=== PATIENT | female | born 1980 | race Caucasian/White ===

== ENCOUNTER 2018-03-21 18:38 | Emergency (ER) | payer MEDICAID, OTHER ==
[2018-03-21 19:10] LABS: BASOPHIL % 0.2 % (0.0-0.4); Basophil (Absolute #) 0.02 (0-0.4); Eosinophil % 3.2 % (0.00-5.0); Eosinophil (Absolute #) 0.28 (0-0.5); Granulocyte Absolute (ANC) 4.56 (1.4-6.9); Granulocytes % 52.3 % (36.0-66.0); Hematocrit 41.1 % (35-47); Hemoglobin 13.4 gm/dl (12.0-16.0); Lymphocyte (Absolute #) 2.93 (1.0-4.6); Lymphocytes % 33.6 % (24.0-44.0); Mean Cell Volume 102.2 fl (78-100); Mean Corpuscular Hemoglobin 33.3 pg (26-32); Mean Corpuscular Hgb Concent. 32.6 g/dl (32-36); Mean Platelet Volume 12.2 fl (6-9.5); Monocyte (Absolute #) 0.93 (0.0-1.3); Monocytes % 10.7 % (0.0-12.0); Platelet Count 149 K/mm3 (150-450); Red Blood Count 4.02 M/mm3 (4.1-5.4); Red Cell Distribution Width 13.1 % (11.5-14.0); White Blood Count 8.7 K/mm3 (4.0-10.5)
[2018-03-21 19:21] LABS: Appearance CLOUDY (CLEAR); Bacteria FEW /HPF (NEGATIVE); Bilirubin NEGATIVE (NEGATIVE); Blood NEGATIVE Ery/ul (0-5); Epithelial Cells MODERATE /HPF (FEW); Glucose NEGATIVE (NEGATIVE); Ketones NEGATIVE (NEGATIVE); Leukocyte Esterase TRACE (NEGATIVE); Mucus SLIGHT /HPF (NEGATIVE); Nitrite NEGATIVE (NEGATIVE); Protein,Urine Dip NEGATIVE (Negative); RBC 0-2 /HPF (0-2); Urobilinogen NORMAL mg/dL (0-1); WBC 0-2 /HPF (0-5)
[2018-03-21 19:22] LABS: Amourphous Crystal MANY /HPF (NEGATIVE)
--- NOTE | 2018-03-21 19:23 | ERPHSYRPT ---
- History of Present Illness Time Seen by Provider: 03/21/18 19:20 Source: patient, family Exam Limitations: no limitations Patient Subjective Stated Complaint: pt reports "pooping mud" for the last 2-3 days, reports today she woke with severe swelling to both lower extremities. states she feels full with a lot pressure to the upper, mid abdominal region. states she feels like someone has pumped her full of air. pt reports shortness of breath. Triage Nursing Assessment: pt is aox3, pupils perrl, pt is afebrile, resps easy and non labored, lung sound are clear anterior, posterior lung sounds are diminished, radial pulses are strong and equal, cap refill < 3 seconds, abd is distended, bowel sounds are present and normoactive x4, 1+ pitting edema noted to the right lower extremity with moderate non pitting edema noted to the left lower extremity, skin is intact, pedal pulses strong and equal bilat. pt denies chest pain. Physician History: pt reports "pooping mud" for the last 2-3 days, reports today she woke with severe swelling to both lower extremities. states she feels full with a lot pressure to the upper, mid abdominal region. states she feels like someone has pumped her full of air. pt reports shortness of breath. c/o swelling over legs, substernal heaviness, c/o epigastric discomfort. Timing/Duration: day(s) Severity of Dyspnea-Max: mild Severity of Dyspnea-Current: mild Possible Cause: frequent episodes Modifying Factors: Improves With: nothing Associated Symptoms: anxiety, chest pain/discomfort, edema, weakness, ankle swelling, leg swelling Allergies/Adverse Reactions: Penicillins Allergy (Mild, Unverified 08/30/12 08:01) Iodinated Contrast- Oral and IV Dye Allergy (Verified 03/21/18 19:00) Hx Tetanus, Diphtheria Vaccination/Date Given: Yes Hx Influenza Vaccination/Date Given: No Hx Pneumococcal Vaccination/Date Given: No Immunizations Up to Date: Yes - Review of Systems Constitutional: No Fever, No Chills Eyes: No Symptoms Ears, Nose, & Throat: No Symptoms Respiratory: Dyspnea, No Cough Cardiac: Chest Pain, Edema, No Syncope Abdominal/Gastrointestinal: No Abdominal Pain, No Nausea, No Vomiting, No Diarrhea Genitourinary Symptoms: No Dysuria Musculoskeletal: No Back Pain, No Neck Pain Skin: No Rash Neurological: No Dizziness, No Focal Weakness, No Sensory Changes Psychological: No Symptoms Endocrine: No Symptoms All Other Systems: Reviewed and Negative - Past Medical History Pertinent Past Medical History: Yes GI Medical History: Pancreatitis History: Other Other Medical History: LEFT KIDNEY REMOVED , STENT IN BLADDER. nexplanon - control implant placed 12/04 - Past Surgical History Past Surgical History: Yes Genitourinary: Kidney Surgery Female Surgical History: Other Other Surgical History: nephrectomy 1990. vaginal mesh to support bladder 2003 - Social History Smoking Status: Current every day smoker Exposure to second hand smoke: Yes Drug Use: none Patient Lives Alone: No - Female History Hx Last Menstrual Period: 03/17/18 Hx Now: No (pending) - Nursing Vital Signs Nursing Vital Signs: Initial Vital Signs Temperature 97.7 F 03/21/18 18:39 Pulse Rate 85 03/21/18 18:39 Respiratory Rate 24 03/21/18 18:39 Blood Pressure 156/103 03/21/18 18:39 O2 Sat by Pulse Oximetry 98 03/21/18 18:39 Pain Scale Pain Intensity 6 - Physical Exam General Appearance: no apparent distress, alert Eye Exam: PERRL/EOMI Neck Exam: normal inspection, supple Respiratory Exam: normal breath sounds Cardiovascular/Chest Exam: normal heart sounds, regular rate/rhythm, edema Abdominal/Gastrointestinal Exam: soft, No tenderness, No distention, No mass Extremity Exam: non-tender, normal range of motion, normal inspection, no calf tenderness, no pedal edema Neurologic Exam: alert, oriented x 3, cooperative, 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 tested, sensation nml, No motor deficits Skin Exam: normal color, warm, No dry SpO2 Interpretation: normal SpO2: 99 Oxygen Delivery: Room Air - Course Nursing assessment & vital signs reviewed: Yes EKG Interpreted by Me: Sinus Rhythm Ordered Tests: Active Orders 24 hr Category Date Time Status Clean Catch Urine Specimen STAT Care 03/21/18 18:57 Active EKG-ER Only STAT Care 03/21/18 18:54 Active IV Insertion STAT Care 03/21/18 18:54 Active CHEST 1 VIEW (PORTABLE) Stat Exams 03/21/18 18:57 Taken CHEST WITH CONTRAST [CT] Stat Exams 03/21/18 19:37 Taken AMYLASE Stat Lab 03/21/18 19:00 Completed CBC W DIFF Stat Lab 03/21/18 19:05 Completed CMP Stat Lab 03/21/18 19:05 Completed D-DIMER QUANTITATION Stat Lab 03/21/18 19:05 Completed HCG,QUALITATIVE URINE Stat Lab 03/21/18 19:05 Completed LIPASE Stat Lab 03/21/18 19:00 Completed TROPONIN Q3H Lab 03/21/18 19:00 Completed TROPONIN Q3H Lab 03/21/18 22:00 Ordered UA W/ MICROSCOPIC Stat Lab 03/21/18 19:05 Completed Medication Summary Generic Name Dose Route Start Last Admin Trade Name Freq PRN Reason Stop Dose Admin Furosemide 20 mg 03/22/18 19:25 03/21/18 19:36 Lasix 20 Mg/2 Ml IV 03/22/18 19:26 20 mg STAT ONE Administration Discontinued Medications Generic Name Dose Route Start Last Admin Trade Name Freq PRN Reason Stop Dose Admin Diphenhydramine HCl 25 mg 03/21/18 19:42 03/21/18 19:54 Benadryl 50 Mg/Ml IV 03/21/18 19:43 25 mg STAT ONE Administration Diphenhydramine HCl Confirm 03/21/18 19:49 Benadryl 50 Mg/Ml Administered 03/21/18 19:50 Dose 50 mg .ROUTE .STK-MED ONE Famotidine 20 mg 03/21/18 19:27 03/21/18 19:35 Pepcid 20 Mg Vial IV 03/21/18 19:28 20 mg STAT ONE Administration Famotidine Confirm 03/21/18 19:32 Pepcid 20 Mg Vial Administered 03/21/18 19:33 Dose 20 mg IV .STK-MED ONE Furosemide Confirm 03/21/18 19:32 Lasix 40 Mg/4 Ml Administered 03/21/18 19:33 Dose 40 mg .ROUTE .STK-MED ONE Hydrocortisone Sodium Succinate 250 mg 03/21/18 19:43 03/21/18 19:53 Solu-Cortef 250mg IV 03/21/18 19:44 250 mg STAT ONE Administration Hydrocortisone Sodium Succinate Confirm 03/21/18 19:49 Solu-Cortef 250mg Administered 03/21/18 19:50 Dose 250 mg .ROUTE .STK-MED ONE Lab/Rad Data: Laboratory Result Diagrams 03/21/18 19:05 03/21/18 19:05 Laboratory Results 03/21/18 03/21/18 03/21/18 Range/Units 19: 19: 19:05 WBC (4.0-10.5) K/mm3 RBC (4.1-5.4) M/mm3 Hgb (12.0-16.0) gm/dl Hct (35-47) % MCV (78-100) fl MCH (26-32) pg MCHC (32-36) g/dl RDW (11.5-14.0) % Plt Count (150-450) K/mm3 MPV (6-9.5) fl Gran % (36.0-66.0) % Eos # (Auto) (0-0.5) Absolute Lymphs (auto) (1.0-4.6) Absolute Monos (auto) (0.0-1.3) Lymphocytes % (24.0-44.0) % Monocytes % (0.0-12.0) % Eosinophils % (0.00-5.0) % Basophils % (0.0-0.4) % Absolute Granulocytes (1.4-6.9) Basophils # (0-0.4) D-Dimer 956.92 H* (215-500) ng/mL Sodium (137-145) mmol/L Potassium (3.5-5.1) mmol/L Chloride (98-107) mmol/L Carbon Dioxide (22-30) mmol/L Anion Gap (5-15) MEQ/L BUN (7-17) mg/dL Creatinine (0.52-1.04) mg/dL Estimated GFR ML/MIN Glucose (74-106) mg/dL Calcium (8.4-10.2) mg/dL Total Bilirubin (0.2-1.3) mg/dL AST (14-36) U/L ALT (0-35) U/L Alkaline Phosphatase (38-126) U/L Troponin I (0.000-0.034) ng/mL Serum Total Protein (6.3-8.2) g/dL Albumin (3.5-5.0) g/dL Amylase (30-110) U/L Lipase (23-300) U/L Ur Collection Type VOID Urine Color YELLOW (YELLOW) Urine Appearance CLOUDY (CLEAR) Urine pH 6.0 (5-6) Ur Specific [place] 1.020 (1.005-1.025) Urine Protein NEGATIVE (Negative) Urine Ketones NEGATIVE (NEGATIVE) Urine Blood NEGATIVE (0-5) Yfn/ul Urine Nitrite NEGATIVE (NEGATIVE) Urine Bilirubin NEGATIVE (NEGATIVE) Urine Urobilinogen NORMAL (0-1) mg/dL Ur Leukocyte Esterase TRACE (NEGATIVE) Urine Microscopic RBC 0-2 (0-2) /HPF Urine Microscopic WBC 0-2 (0-5) /HPF Ur Epithelial Cells MODERATE (FEW) /HPF Amorphous Crystals MANY (NEGATIVE) /HPF Urine Bacteria FEW (NEGATIVE) /HPF Urine Mucus SLIGHT (NEGATIVE) /HPF Urine Culture Reflexed NO (NO) Urine Glucose NEGATIVE (NEGATIVE) mg/dL Urine HCG, Qual NEGATIVE (Negative) Specimen Received 03/21/18 19103/21/18 03/21/18 03/21/18 Range/Units 19:05 19:05 19:00 WBC 8.7 (4.0-10.5) K/mm3 RBC 4.02 L (4.1-5.4) M/mm3 Hgb 13.4 (12.0-16.0) gm/dl Hct 41.1 (35-47) % MCV 102.2 H (78-100) fl MCH 33.3 H (26-32) pg MCHC 32.6 (32-36) g/dl RDW 13.1 (11.5-14.0) % Plt Count 149 L (150-450) K/mm3 MPV 12.2 H (6-9.5) fl Gran % 52.3 (36.0-66.0) % Eos # (Auto) 0.28 (0-0.5) Absolute Lymphs (auto) 2.93 (1.0-4.6) Absolute Monos (auto) 0.93 (0.0-1.3) Lymphocytes % 33.6 (24.0-44.0) % Monocytes % 10.7 (0.0-12.0) % Eosinophils % 3.2 (0.00-5.0) % Basophils % 0.2 (0.0-0.4) % Absolute Granulocytes 4.56 (1.4-6.9) Basophils # 0.02 (0-0.4) D-Dimer (215-500) ng/mL Sodium 140 (137-145) mmol/L Potassium 4.3 (3.5-5.1) mmol/L Chloride 107 (98-107) mmol/L Carbon Dioxide 25 (22-30) mmol/L Anion Gap 11.9 (5-15) MEQ/L BUN 16 (7-17) mg/dL Creatinine 0.82 (0.52-1.04) mg/dL Estimated GFR > 60.0 ML/MIN Glucose 99 (74-106) mg/dL Calcium 9.6 (8.4-10.2) mg/dL Total Bilirubin 0.30 (0.2-1.3) mg/dL AST 46 H (14-36) U/L ALT 57 H (0-35) U/L Alkaline Phosphatase 74 (38-126) U/L Troponin I (0.000-0.034) ng/mL Serum Total Protein 6.1 L (6.3-8.2) g/dL Albumin 3.5 (3.5-5.0) g/dL Amylase 74 (30-110) U/L Lipase 162 (23-300) U/L Ur Collection Type Urine Color (YELLOW) Urine Appearance (CLEAR) Urine pH (5-6) Ur Specific [place] (1.005-1.025) Urine Protein (Negative) Urine Ketones (NEGATIVE) Urine Blood (0-5) Yfn/ul Urine Nitrite (NEGATIVE) Urine Bilirubin (NEGATIVE) Urine Urobilinogen (0-1) mg/dL Ur Leukocyte Esterase (NEGATIVE) Urine Microscopic RBC (0-2) /HPF Urine Microscopic WBC (0-5) /HPF Ur Epithelial Cells (FEW) /HPF Amorphous Crystals (NEGATIVE) /HPF Urine Bacteria (NEGATIVE) /HPF Urine Mucus (NEGATIVE) /HPF Urine Culture Reflexed (NO) Urine Glucose (NEGATIVE) mg/dL Urine HCG, Qual (Negative) Specimen Received 03/21/18 Range/Units 19:00 WBC (4.0-10.5) K/mm3 RBC (4.1-5.4) M/mm3 Hgb (12.0-16.0) gm/dl Hct (35-47) % MCV (78-100) fl MCH (26-32) pg MCHC (32-36) g/dl RDW (11.5-14.0) % Plt Count (150-450) K/mm3 MPV (6-9.5) fl Gran % (36.0-66.0) % Eos # (Auto) (0-0.5) Absolute Lymphs (auto) (1.0-4.6) Absolute Monos (auto) (0.0-1.3) Lymphocytes % (24.0-44.0) % Monocytes % (0.0-12.0) % Eosinophils % (0.00-5.0) % Basophils % (0.0-0.4) % Absolute Granulocytes (1.4-6.9) Basophils # (0-0.4) D-Dimer (215-500) ng/mL Sodium (137-145) mmol/L Potassium (3.5-5.1) mmol/L Chloride (98-107) mmol/L Carbon Dioxide (22-30) mmol/L Anion Gap (5-15) MEQ/L BUN (7-17) mg/dL Creatinine (0.52-1.04) mg/dL Estimated GFR ML/MIN Glucose (74-106) mg/dL Calcium (8.4-10.2) mg/dL Total Bilirubin (0.2-1.3) mg/dL AST (14-36) U/L ALT (0-35) U/L Alkaline Phosphatase (38-126) U/L Troponin I < 0.012 (0.000-0.034) ng/mL Serum Total Protein (6.3-8.2) g/dL Albumin (3.5-5.0) g/dL Amylase (30-110) U/L Lipase (23-300) U/L Ur Collection Type Urine Color (YELLOW) Urine Appearance (CLEAR) Urine pH (5-6) Ur Specific [place] (1.005-1.025) Urine Protein (Negative) Urine Ketones (NEGATIVE) Urine Blood (0-5) Yfn/ul Urine Nitrite (NEGATIVE) Urine Bilirubin (NEGATIVE) Urine Urobilinogen (0-1) mg/dL Ur Leukocyte Esterase (NEGATIVE) Urine Microscopic RBC (0-2) /HPF Urine Microscopic WBC (0-5) /HPF Ur Epithelial Cells (FEW) /HPF Amorphous Crystals (NEGATIVE) /HPF Urine Bacteria (NEGATIVE) /HPF Urine Mucus (NEGATIVE) /HPF Urine Culture Reflexed (NO) Urine Glucose (NEGATIVE) mg/dL Urine HCG, Qual (Negative) Specimen Received - Progress Progress: improved Air Movement: good Blood Culture(s) Obtained: No Antibiotics given: No Counseled pt/family regarding: lab results, diagnosis, need for follow-up, rad results - Departure Time of Disposition: 19:34 Departure Disposition: Home Clinical Impression: Anasarca associated with disorder of kidney, Gastritis and duodenitis Condition: Stable Critical Care Time: No Referrals: ORALIA CAMPBELL [ACTIVE STAFF] - Additional Instructions: ABDOMINAL PAIN 1. There are several different causes for abdominal pain, some of which may not be able to be identified on initial examination. 2. The important thing to remember is that bodily functions can change in a short period of time. If you notice any of the following symptoms, return to the emergency department or consult your doctor immediately: A. Worsening pain or no improvement in the next 12 hours. B. Increasing, severe abdominal pain C. Blood in stool D. Black stools E. Persistent vomiting F. Fever or chills or other symptoms SURYA KIRKLAND was seen on 03/21/18 n the Emergency Room. At that time you were treated for an emergent condition, during your visit Laboratory, Radiology and/or other procedures may have been ordered. It is very important that you follow-up with your Primary Care Physician within the next 24-48 hours to review your Emergency Room visit and the final results of testing that was ordered. Some test results such as Urine Cultures, Blood Cultures, and other cultures if ordered will not be finalized for 24-48 hours. If you do not have a Primary Care Provider please call the medical records department at [phone] to obtain a copy of your results or you may sign into our patient portal to obtain these results by visiting us @ [email or web address] and completing the following steps: 1. Click on the Patient Portal link 2. Click the Patient Self Enrollment Link to complete the enrollment form and entering your 3. Once the enrollment form is completed you will receive an email with a temporary ID and password at the email address you provided. 4. Next choose a user name and password. Your user name must be at least 4 characters long and your password must be at least 4 characters long. 5. Choose a security question from the list and provide your answer to the question. If you already have signed into the Health Portal you may access your Health Care Information 09/06 by the following steps: 1. Login to our website @ [email or web address] 2. Enter your original user name and password. FAQS The [facility] Health Portal is an online tool that contains your Lab Results, Radiology Reports, Visit History, Discharge Instructions and Health Summary Lab and Radiology Results will not be available for 72 hours on the portal. The Portal is a secure site, passwords are encryted and URLs are re-written so they cannot be copied and pasted. You and authorized family members are the only ones who can access your Portal. Also there is a timeout feature that protects your information if you leave the Portal page open. If you have technical difficulty please use the Contact Us link on the page this will allow you to submit any questions you have regarding the Portal or you may contact the Medical Record Department at [phone]. Follow-up with your primary care physician and discussed with him or her about getting and gallbladder ultrasound. Please follow the instructions given to you. Please take your medication as prescribed if given. If symptoms recur or get worse, come back to the emergency room if you cannot reach your primary care physician, or call your primary care physician for an appointment. Again if your symptoms get worse, come back to the emergency room. Thanks for visiting emergency room, and let us take care of you. Prescriptions: Famotidine 20 mg [Pepcid 20 MG] 20 mg PO BID #60 tablet PANTOPRAZOLE 40 mg Tablet [Protonix 40MG Tablet] 40 mg PO DAILY #30 tab
[2018-03-21 19:24] LABS: ALBUMIN 3.5 g/dL (3.5-5.0); ALKALINE PHOSPHATASE 74 U/L (38-126); ANION GAP 11.9 MEQ/L (5-15); BLOOD UREA NITROGEN 16 mg/dL (7-17); CHLORIDE 107 mmol/L (98-107); Calcium 9.6 mg/dL (8.4-10.2); Carbon Dioxide 25 mmol/L (22-30); Creatinine 1 0.82 mg/dL (0.52-1.04); Glucose 99 mg/dL (74-106); Potassium 4.3 mmol/L (3.5-5.1); SGOT/AST 46 U/L (14-36); SGPT/ALT 57 U/L (0-35); SODIUM 140 mmol/L (137-145); Total Protein 6.1 g/dL (6.3-8.2)
[2018-03-21] MEDS ORDERED: Pepcid 20 MG VIAL IV ONE ×2 (19:27→19:32)
[2018-03-21] MEDS ORDERED: Lasix 40 MG/4 ML ONE (19:32)
[2018-03-21 19:40] LABS: AMYLASE 74 U/L (30-110); LIPASE 162 U/L (23-300)
[2018-03-21] MEDS ORDERED: BENADRYL 50 MG/ML IV ONE (19:42)
[2018-03-21] MEDS ORDERED: solu-CORTEF 250MG IV ONE (19:43)
[2018-03-21] MEDS ORDERED: BENADRYL 50 MG/ML ONE (19:49)
[2018-03-21] MEDS ORDERED: solu-CORTEF 250MG ONE (19:49)
[2018-03-21 21:35] VITALS: BP 132/90; PULSE 84; O2SAT 98
--- NOTE | 2018-03-21 22:11 | XRAY ---
Indication: Short of breath. Elevated d-dimer. Upper abdominal pain/bloating. Multiple contiguous axial images obtained through the chest using 80 cc Isovue 370 contrast and PE protocol. Comparison: None Patient was premedicated with 25 mg Benadryl and 250 mg Solu Cortef for known iodine allergy. There is adequate opacification of the pulmonary arteries. Mild respiration artifact limits evaluation of the more distal lobar and segmental branches. No pulmonary embolus. Heart is not enlarged. Aorta is normal in course and caliber. Tiny bilateral hilar calcified node. No pathologic mediastinal/hilar lymphadenopathy. Lungs are inflated and clear with incidental left lower lobe calcified granuloma. Bony thorax intact with minimal spinal degenerative changes. Limited upper abdomen demonstrates food distended stomach, contracted gallbladder, and left nephrectomy. Impression: 1. Mild respiration artifact. No pulmonary embolus. 2. Evidence for old granulomatous disease. 3. No acute cardiopulmonary abnormalities. Comment: Preliminary interpretation was made by [facility]. No discrepancy. CTDI 23.55
--- NOTE | 2018-03-21 22:13 | XRAY ---
Indication: Short of breath. Comparison: January 16, 2012. Portable apical lordotic chest demonstrates normal heart and lungs with new incidental left base calcified granuloma. Heart is not enlarged. Bony thorax intact. Impression: Nonacute chest. Evidence for old granulomatous disease.
[2018-03-22] MEDS ORDERED: Lasix 20 MG/2 ML IV ONE (19:25)
== END 2018-03-21 21:43 | disposition home or self-care (01) ==
LOC: SUPCPDRO 18:38 → ED 18:38
DX: N04.9 Nephrotic syndrome with unspecified morphologic changes (principal); K29.70 Gastritis, unspecified, without bleeding; K29.80 Duodenitis without bleeding
CPT/HCPCS: 36000; 36415; 71045; 71260; 80053; 81000; 82150; 83690; 84484; 84703; 85025; 85379; 93005; 96374; 96375; 99284; J1200; J1720; J1940